=== PATIENT | female | born 1985 | race Caucasian/White ===

== ENCOUNTER 2018-08-28 06:12 | Inpatient (IN) | payer OTHER ==
[~2018-08-28] VITALS: Ht 162.6 cm; Wt 81.6 kg
[2018-08-28] MEDS ORDERED: PRENATAL TABLE1 EACH PO (06:35)
== END 2018-08-30 13:29 | DRG 807 ==
LOC: LDR 06:12 → OB/GYN 20:40
PROVIDERS: ADMIT Obstetrics & Gynecology
PROC: 10E0XZZ Delivery of Products of Conception, External Approach (ICD-10-PCS; principal; 2018-08-28)
PROC: 3E033VJ Introduction of Other Hormone into Peripheral Vein, Percutaneous Approach (ICD-10-PCS; 2018-08-28)
PROC: 4A1HXCZ Monitoring of Products of Conception, Cardiac Rate, External Approach (ICD-10-PCS; 2018-08-28)
DX: O80 Encounter for full-term uncomplicated delivery (principal); Z37.0 Single live birth; Z3A.39 39 weeks gestation of pregnancy

== ENCOUNTER 2020-11-16 20:50 | Outpatient (CLI) | payer OTHER ==
[~2020-11-16 20:50] MED LIST: PRENATAL TABLE1 EACH PO
== END 2020-11-17 07:57 | disposition home or self-care (01) ==
LOC: OBS/DEL 20:50 → LDR 21:06 → OBS/DEL 21:07
PROVIDERS: ATTEND Obstetrics & Gynecology
DX: O26.893 Other specified pregnancy related conditions, third trimester (principal); R10.2 Pelvic and perineal pain; Z3A.35 35 weeks gestation of pregnancy

== ENCOUNTER 2020-12-15 05:58 | Inpatient (IN) | payer OTHER ==
[~2020-12-15] VITALS: Ht 162.6 cm; Wt 78.0 kg
== END 2020-12-17 15:43 | disposition home or self-care (01) | DRG 807 ==
LOC: LDR 05:58 → OB/GYN 16:55
PROVIDERS: ADMIT Obstetrics & Gynecology; ATTEND Obstetrics & Gynecology
PROC: 10E0XZZ Delivery of Products of Conception, External Approach (ICD-10-PCS; principal; 2020-12-15)
PROC: 4A1HXFZ Monitoring of Products of Conception, Cardiac Rhythm, External Approach (ICD-10-PCS; 2020-12-15)
DX: O80 Encounter for full-term uncomplicated delivery (principal); Z37.0 Single live birth; Z3A.39 39 weeks gestation of pregnancy; Z20.822 Contact with and (suspected) exposure to COVID-19

== ENCOUNTER 2022-11-18 17:43 | Emergency (ER) | payer OTHER ==
[~2022-11-18] VITALS: Ht 162.6 cm; Wt 70.3 kg
== END 2022-11-18 22:11 | disposition home or self-care (01) ==
LOC: ER 17:43
DX: J06.9 Acute upper respiratory infection, unspecified (principal); Z20.822 Contact with and (suspected) exposure to COVID-19

== ENCOUNTER 2024-07-20 18:59 | Emergency (ER) | payer OTHER ==
[~2024-07-20] VITALS: Ht 162.6 cm; Wt 72.1 kg
[2024-07-20] MEDS ORDERED: KETOROLAC TROMETHAMINE 60 MG VIAL IM ONE ×2 (20:00→20:49)
[2024-07-20] MEDS ORDERED: DICLOFENAC SODI50 MG PO (21:40)
== END 2024-07-20 22:02 ==
LOC: ER 19:01
DX: S93.492A Sprain of other ligament of left ankle, initial encounter (principal); X83.8XXA Intentional self-harm by other specified means, initial encounter; Y93.89 Activity, other specified; Y92.89 Other specified places as the place of occurrence of the external cause; Y99.8 Other external cause status

== ENCOUNTER 2024-10-29 16:02 | Emergency (ER) | payer OTHER ==
[~2024-10-29] VITALS: Ht 162.6 cm; Wt 70.3 kg
[~2024-10-29 16:02] MED LIST changes: +DICLOFENAC SODI50 MG PO
[2024-10-29] MEDS ORDERED: METHYLPREDNISOLONE SOD SUCC 40 MG VIAL ONE (17:28)
[2024-10-29] MEDS ORDERED: CEFTRIAXONE SODIUM 1,000 MG VIAL IM ONE (17:30)
[2024-10-29] MEDS ORDERED: METHYLPREDNISOLONE SOD SUCC 125 MG VIAL IM ONE (17:30)
[2024-10-29 20:27] LABS: BASO % 0.7 % (0.1-1.2); EOS # 0.31 (0.04-0.54); EOS % 5.6 % (0.7-7.0); HEMOGLOBIN 13.1 g/dL (11.2-15.7); LYMPH # 1.62 (1.18-3.74); LYMPH % 29.5 % (19.3-53.1); MONO # 0.32 (0.24-0.82); MONO % 5.8 % (4.7-12.5); NEUT % 58.2 % (34.0-71.1); PLATELET COUNT 252 K/uL (163-369); RED BLOOD COUNT 4.85 M/uL (3.93-5.22); RED CELL DISTRIBUTION WIDTH 12.7 % (11.6-14.4)
[2024-10-29] MEDS ORDERED: MEDROLPACK PO (20:45)
[2024-10-29] MEDS ORDERED: PROTONIX40 MG PO (20:45)
== END 2024-10-29 21:51 | disposition home or self-care (01) ==
LOC: ER 16:48
PROVIDERS: General Practice
DX: J04.0 Acute laryngitis (principal)